=== PATIENT | female | born 2000 | race Caucasian/White ===

== ENCOUNTER 2020-05-25 13:16 | Emergency (ER) | payer OTHER ==
[2020-05-25] MEDS ORDERED: ONDANSETRON 4 MG TAB.RAPDIS PO ONE (14:02)
--- NOTE | 2020-05-25 14:05 | ER Document Report ---
ED Medical Screen (RME) - General Chief Complaint: Abdominal Pain Stated Complaint: VOMITING,CHILLS,ABDOMINAL PAIN Time Seen by Provider: 05/25/20 13:59 Mode of Arrival: Ambulatory Information source: Patient Notes: 20-year-old female presented to ED for complaint of nausea vomiting and diarrhea x3 days. She does have abdominal cramping. She states she has not had any fever shortness of breath or cough or congestion. States she has not been tested for Covid and does not know she has Covid. She does use a vapor cigarette and uses marijuana. She states she is last menstrual period has been more than a month ago but she does take control that causes her to skip periods. She is alert oriented respirations regular nonlabored speaking in full sentences. I have greeted and performed a rapid initial assessment of this patient. A comprehensive ED assessment and evaluation of the patient, analysis of test results and completion of medical decision making process will be conducted by an additional ED providers. - Related Data Allergies/Adverse Reactions: cefdinir [From [employer]] Allergy (Verified 05/25/20 13:58) Past Medical History - Social History Chew tobacco use (# tins/day): No Frequency of alcohol use: None Drug Abuse: Marijuana Physical Exam - Vital signs Vitals: Temp Pulse Resp BP Pulse Ox 97.7 F 87 16 124/58 L 100 05/25/20 13:20 05/25/20 13:20 05/25/20 13:20 05/25/20 13:20 05/25/20 13:20 Course - Vital Signs Vital signs: Temp Pulse Resp BP Pulse Ox 97.7 F 87 16 124/58 L 100 05/25/20 13:20 05/25/20 13:20 05/25/20 13:20 05/25/20 13:20 05/25/20 13:20
[2020-05-25 16:10] LABS: ABSOLUTE EOSINOPHILS # (AUTO) 0.4 10^3/uL (0.0-0.6); ABSOLUTE LYMPHOCYTES (AUTO) 2.3 10^3/uL (0.5-4.7); ABSOLUTE MONOCYTES (AUTO) 0.5 10^3/uL (0.1-1.4); ABSOLUTE NEUT (AUTO) 7.5 10^3/uL (1.7-8.2); APPEARANCE,URINE CLEAR; BASOPHILS % (AUTO) 0.4 % (0-2); BILIRUBIN,URINE NEGATIVE (NEGATIVE); COLOR,URINE YELLOW; EOSINOPHILS % (AUTO) 3.5 % (0-6); GLUCOSE, URINE NEGATIVE (NEGATIVE); HEMOGLOBIN 12.7 g/dL (12.0-15.5); KETONES,URINE 20 mg/dL (NEGATIVE); LEUKOCYTE ESTERASE,URINE NEGATIVE (NEGATIVE); LYMPHOCYTES % (AUTO) 21.5 % (13-45); MEAN CORPUSCULAR HEMOGLOBIN 31.3 pg (27.0-33.4); MEAN CORPUSCULAR HGB CONC 35.2 g/dL (32.0-36.0); MEAN CORPUSCULAR VOLUME 89 fl (80-97); MONOCYTES % (AUTO) 5.1 % (3-13); NITRITE,URINE NEGATIVE (NEGATIVE); PLATELET COUNT 280 10^3/uL (150-450); PROTEIN,URINE NEGATIVE (NEGATIVE); RED BLOOD COUNT 4.06 10^6/uL (3.72-5.28); RED CELL DISTRIBUTION WIDTH 12.5 % (11.5-14.0); SEGMENTED NEUTROPHILS % (AUTO) 69.5 % (42-78); TOTAL CELLS COUNTED % (AUTO) 100 %; URINE SPECIFIC GRAVITY 1.013; UROBILINOGEN,URINE NEGATIVE mg/dL (<2.0); WHITE BLOOD COUNT 10.8 10^3/uL (4.0-10.5)
[2020-05-25 16:23] LABS: A TYPE INFLUENZA AG NEGATIVE (NEGATIVE); B INFLUENZA AG NEGATIVE (NEGATIVE)
[2020-05-25 16:25] LABS: ALBUMIN 4.7 g/dL (3.5-5.0); ALKALINE PHOSPHATASE 42 U/L (38-126); ANION GAP 6 (5-19); ASPARTATE AMINO TRANSFERASE 18 U/L (14-36); BILIRUBIN,DIRECT 0.1 mg/dL (0.0-0.4); BILIRUBIN,TOTAL 0.4 mg/dL (0.2-1.3); BLOOD UREA NITROGEN 6 mg/dL (7-20); CALCIUM 9.8 mg/dL (8.4-10.2); CARBON DIOXIDE 28 mmol/L (22-30); CHLORIDE 101 mmol/L (98-107); GLUCOSE 81 mg/dL (75-110); POTASSIUM 3.9 mmol/L (3.6-5.0); TOTAL PROTEIN 7.5 g/dL (6.3-8.2)
[2020-05-25] MEDS ORDERED: METOCLOPRAMIDE HCL INJ/PF 10 MG/2 ML SDV IV ONE (20:19)
[2020-05-25] MEDS ORDERED: NORMAL SALINE 1000 ML 1,000 ML IV ONE (20:19)
--- NOTE | 2020-05-25 20:22 | ER Document Report ---
ED General - General Chief Complaint: Abdominal Pain Stated Complaint: VOMITING,CHILLS,ABDOMINAL PAIN Time Seen by Provider: 05/25/20 13:59 Mode of Arrival: Ambulatory Information source: Patient Notes: Patient presents to the ER for evaluation of nausea, vomiting, diarrhea with lower abdominal pain that began on 22 May. She denies fever. She denies cough or congestion. The patient states she is able to tolerate some p.o. fluid intake. She states last known menstrual period was 1 month ago. She is currently on control and is sexually active. She denies vaginal discharge or bleeding. She denies dysuria. Nursing notes reviewed and past medical, social, and family histories reviewed and validated. TRAVEL OUTSIDE OF THE [place] IN LAST 30 DAYS: No - Related Data Allergies/Adverse Reactions: cefdinir [From Omnicef] Allergy (Verified 05/25/20 13:58) Past Medical History - General Information source: Patient - Social History Smoking Status: Never Smoker Chew tobacco use (# tins/day): No Frequency of alcohol use: None Drug Abuse: Marijuana Lives with: Family Family History: Reviewed & Not Pertinent Patient has suicidal ideation: No Patient has homicidal ideation: No - Past Medical History Cardiac Medical History: Reports: None Pulmonary Medical History: Reports: None EENT Medical History: Reports: None Neurological Medical History: Reports: None Endocrine Medical History: Reports: None Renal/ Medical History: Reports: None Malignancy Medical History: Reports: None GI Medical History: Reports: None Musculoskeletal Medical History: Reports None Skin Medical History: Reports None Psychiatric Medical History: Reports: None Traumatic Medical History: Reports: None Infectious Medical History: Reports: None Past Surgical History: Reports: None - Immunizations Immunizations up to date: Yes Hx Diphtheria, Pertussis, Tetanus Vaccination: Yes Review of Systems - Review of Systems Notes: Constitutional: Negative for fever. HENT: Negative for sore throat. Eyes: Negative for visual changes. Cardiovascular: Negative for chest pain. Respiratory: Negative for shortness of breath. Gastrointestinal: For lower abdominal pain. Positive for vomiting and diarrhea. Genitourinary: Negative for dysuria. Musculoskeletal: Negative for back pain. Skin: Negative for rash. Neurological: Negative for headaches, weakness or numbness. 10 point ROS negative except as marked above and in HPI. Physical Exam - Vital signs Vitals: Temp Pulse Resp BP Pulse Ox 97.7 F 87 16 124/58 L 100 12/27/20 13:20 05/25/20 13:20 05/25/20 13:20 05/25/20 13:20 05/25/20 13:20 - Notes Notes: CONSTITUTIONAL: Patient is wellappearing. She is in no acute distress. SKIN: Warm, dry, and intact without rash EYES: Extraocular movements are grossly intact, clear conjunctiva HENT: Normocephalic, atraumatic, dry mucus membranes NECK: No obvious swelling, normal range of motion PULMONARY: Normal chest rise and fall. Breath sounds clear and equal bilaterally. No respiratory distress or stridor CARDIOVASCULAR: Regular rate. No murmurs, rubs, gallops. Distal extremities are warm and well perfused. ABDOMINAL: Soft, nontender NEUROLOGIC: Normal speech, moves all extremities. MUSCULOSKELETAL: No gross deformities, atraumatic PSYCHIATRIC: Normal mood and affect Course - Re-evaluation Re-evalutation: 05/25/20 22:47 Rechecked patient who has responded well to treatment in the ER. She denies any abdominal pain. She denies actively being nauseated. She has had no vomiting or diarrhea while in the department. She has requested assistance with and has verbalized her intent to complete this once discharged. Discussed with patient: results, diagnosis, treatment plan, and need for follow-up. Return to the emergency department warnings were given. All questions and concerns were addressed. The plan is agreed with and understood. Patient is stable and ready for discharge. - Vital Signs Vital signs: Temp Pulse Resp BP Pulse Ox 97.2 F 72 15 124/68 99 05/25/20 22:33 05/25/20 22:33 05/25/20 22:33 05/25/20 22:33 05/25/20 22:33 - Laboratory Results Result Diagrams: 05/25/20 15:45 05/25/20 15:45 Laboratory Results Interpreted: 05/25/20 05/25/20 05/25/20 15:45 15:45 15:45 WBC 10.8 H Sodium 135.0 L BUN 6 L Creatinine 0.51 L Serum HCG, Qual POSITIVE H Beta HCG, Quant Urine Ketones 05/25/20 05/25/20 15:45 15:45 WBC Sodium BUN Creatinine Serum HCG, Qual Beta HCG, Quant 52700.00 H Urine Ketones 20 H Critical Laboratory Results Reviewed: No Critical Results - Radiology Results Critical Radiology Results Reviewed: No Critical Results Discharge - Discharge Clinical Impression: Nausea vomiting and diarrhea, Lower abdominal pain Qualifiers: Weeks of gestation: less than 8 weeks Qualified Code(s): Z3A.01 - Less than 8 weeks gestation of Disposition: HOME, SELF-CARE Instructions: Reglan ([facility]), ([facility]), Nausea or Vomiting, Nonspecific ([facility]) Additional Instructions: Follow-up with your primary care this week. Return to the emergency room if your symptoms change or worsen. Prescriptions: Metoclopramide HCl [Reglan 10 mg Tablet] 10 mg PO BID PRN #10 tablet PRN Reason: For Nausea/Vomiting
--- NOTE | 2020-05-25 22:14 | RADIOLOGY REPORT (SQ) ---
EXAM DESCRIPTION: US TRANSVAGINAL COMPLETED DATE/TME: 05/25/2020 21:31 CLINICAL HISTORY: 20 years, Female, abd pain COMPARISON: None. TECHNIQUE: Emergent ultrasound LIMITATIONS: None. FINDINGS: The uterus measures 7.2 x 4.1 x 6.7 cm. There is an intrauterine gestational sac with yolk sac and pole. Heart tones were obtained at 244 bpm. Current ultrasound age is 5 weeks 6 days. The maternal left ovary is not well seen likely due to its position in the pelvis. Right ovary measures 3 x 3 x 3 cm. Arterial and venous flow to the right ovary. No adnexal cyst or mass. No free fluid IMPRESSION: Single live IUP as above. Continued nonemergent obstetric follow-up recommended copyright 2010 [employer]- All Rights Reserved
[2020-05-25 22:34] VITALS: BP 124/68
== END 2020-05-25 22:48 | disposition home or self-care (01) ==
LOC: ER 13:16
DX: O21.9 Vomiting of pregnancy, unspecified (principal); O26.891 Other specified pregnancy related conditions, first trimester; R10.30 Lower abdominal pain, unspecified; R19.7 Diarrhea, unspecified; O99.321 Drug use complicating pregnancy, first trimester; F12.10 Cannabis abuse, uncomplicated; Z79.3 Long term (current) use of hormonal contraceptives; Z20.828 Contact with and (suspected) exposure to other viral communicable diseases; Z88.1 Allergy status to other antibiotic agents; Z3A.01 Less than 8 weeks gestation of pregnancy
CPT/HCPCS: 99285; 96374; 36415; 87070; 87086; 87880; 84702; 83690; 84703; 85025; 87635; 80053; 81001; 87804; 76817; 93976; S0119; J2765; J7030; C9803